=== PATIENT | male | born 1950 | race Caucasian/White ===

== ENCOUNTER → 2017-11-06 07:32 | Outpatient (CLI) | payer MEDICARE, OTHER, SELFPAY | PROVIDERS: PCP Family Medicine; Visit Provider Physician Assistant | DX: Z12.5 Encounter for screening for malignant neoplasm of prostate (principal) | CPT/HCPCS: 36415; 84153 ==

== ENCOUNTER → 2018-10-14 09:18 | Outpatient (CLI) | payer MEDICARE, OTHER, SELFPAY ==
[2018-10-14 11:26] LABS: Prostate Specific Antigen 3.04 ng/mL (0.10-4.00)
== END ==
PROVIDERS: PCP Family Medicine; Visit Provider Specialist
DX: N40.1 Benign prostatic hyperplasia with lower urinary tract symptoms (principal)
CPT/HCPCS: 36415; 84153

== ENCOUNTER 2018-10-25 12:05 | Emergency (ER) | payer MEDICARE, OTHER, SELFPAY ==
[2018-10-25 12:12] VITALS: BP 144/83; PULSE 68; RESP 18; TEMP 36.6; O2SAT 99; BMI 21.9
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
--- NOTE | 2018-10-25 12:49 | PC.NURSE ---
right shoulder injury, elevation of AC joint, good pulses. limited ROM
[2018-10-25 13:28] VITALS: BP 129/86; PULSE 67; RESP 16; O2SAT 97
== END 2018-10-25 13:44 | disposition home or self-care (01) ==
PROVIDERS: Emergency Provider Nurse Practitioner; PCP Family Medicine
DX: S43.101A Unspecified dislocation of right acromioclavicular joint, initial encounter (principal); V18.0XXA Pedal cycle driver injured in noncollision transport accident in nontraffic accident, initial encounter; Y93.55 Activity, bike riding
CPT/HCPCS: 73030; 99283

== ENCOUNTER → 2019-03-19 08:36 | Outpatient (CLI) | payer MEDICARE, OTHER, SELFPAY ==
--- NOTE | 2019-03-19 | DI.US.S_ITS ---
PROCEDURE: US ABD AORTA ANEURYSM SCREEN INDICATIONS: ABDOMINAL AORTIC ANEURYSM SCREENING, FORMER SMOKER TECHNIQUE: Real time scanning was performed of the aorta and iliac arteries, with image documentation. COMPARISON: None. FINDINGS: Aorta: Proximal aortic diameter measures 2.2 cm. Mid-aorta measures 2.0 cm. Distal aortic diameter is 1.8 cm. Iliac arteries: Right common iliac artery measures 2.0 cm. Left common iliac artery measures 1.8 cm. IMPRESSION: 1. No sonographic evidence for abdominal aortic aneurysms or ectasia. 2. Minimal ectasia of the bilateral common iliac arteries. No common iliac aneurysms. Dictated by: Enrike Hidalgo M.D. on 03/19/2019 at 13:29 Approved by: Enrike Hidalgo M.D. on 03/19/2019 at 13:32
== END ==
PROVIDERS: PCP Family Medicine; Visit Provider Family Medicine
DX: Z13.6 Encounter for screening for cardiovascular disorders (principal); Z87.891 Personal history of nicotine dependence
CPT/HCPCS: 76706

== ENCOUNTER → 2019-05-05 07:19 | Outpatient (CLI) | payer MEDICARE, OTHER, SELFPAY ==
[2019-05-05 09:13] LABS: Prostate Specific Antigen 3.77 ng/mL (0.10-4.00)
== END ==
PROVIDERS: PCP Family Medicine; Visit Provider Specialist
DX: N40.1 Benign prostatic hyperplasia with lower urinary tract symptoms (principal)
CPT/HCPCS: 36415; 84153

== ENCOUNTER → 2019-07-31 11:03 | Outpatient (CLI) | payer MEDICARE, OTHER, SELFPAY ==
--- NOTE | 2019-07-31 11:07 | DI.CT.S_ITS ---
PROCEDURE: CT SOFT TISSUE NECK W CON INDICATIONS: Localized swelling, mass and lump, neck TECHNIQUE: After the administration of intravenous contrast, 3.0 mm axial sections acquired from the sella to the aortic arch. Additional oblique axial 3.0 mm sections acquired through the pharynx. 3 mm thick coronal and sagittal reformats were generated. For radiation dose reduction, the following was used: automated exposure control. COMPARISON: None. FINDINGS: Image quality: Excellent. Lymph nodes: No enlarged lymph nodes seen throughout the neck. Vessels: Visualized vasculature appears patent. There is note of a prominent aberrant right subclavian artery. It is causing compression and anterior left displacement of the thoracic esophagus. This is consistent with a congenital variation. Neck spaces: The oropharynx, nasopharynx, and pharynx demonstrate no mucosal lesions. The vocal cords, false vocal cords, pyriform sinuses, epiglottis, vallecula, and tongue base all appear normal. Extramucosal spaces appear unremarkable. Glands: The parotid and submandibular glands appear normal. Thyroid gland is unremarkable. Miscellaneous: Visualized brain and orbits appear normal. Lung apices appear clear. Superficial soft tissues appear normal. Bones: No suspicious bony lesions. Visualized sinuses and mastoids appear unremarkable. IMPRESSION: 1. Prominent aberrant right subclavian artery with a coarse posterior to the thoracic esophagus causing anterior left lateral displacement of the esophagus. Dictated by: Clemencia Cortes M.D. on 07/31/2019 at 17:40 Approved by: Clemencia Cortes M.D. on 07/31/2019 at 17:42
== END ==
PROVIDERS: PCP Family Medicine; Referring Provider Family Medicine; Visit Provider Family Medicine
DX: R22.1 Localized swelling, mass and lump, neck (principal); K22.8 Other specified diseases of esophagus
CPT/HCPCS: 70491; Q9967

== ENCOUNTER → 2019-11-07 10:41 | Outpatient (CLI) | payer MEDICARE, OTHER, SELFPAY ==
--- NOTE | 2019-11-07 | DI.US.S_ITS ---
PROCEDURE: US ABDOMEN LIMITED INDICATIONS: RIGHT INGUINAL PAIN TECHNIQUE: Real-time focused scanning was performed of the inguinal region, with image documentation. COMPARISON: [facility], CT, ABDOMEN/PELVIS WITH CONTRAST, 10/25/2016, 10:21. FINDINGS: No inguinal hernia or other right groin abnormality seen. IMPRESSION: No right groin abnormality. Dictated by: Dayday STEPHENSON Interpreted: Pili Lainez MD on 11/07/2019 at 12:11 Approved by: Pili Lainez MD, PhD on 11/07/2019 at 14:31
--- NOTE | 2019-11-07 | DI.US.S_ITS ---
PROCEDURE: US SCROTUM INDICATIONS: RIGHT INGUINAL PAIN TECHNIQUE: Real-time scanning was performed of the scrotum and testicles, with image documentation. Color and pulse Doppler interrogation was performed of both testicles. COMPARISON: None. FINDINGS: Right: Testicle is normal in size at 4.4 x 1.7 x 3.1 cm, and homogenous in echotexture. Epididymis is normal in overall size and morphology. Mild increased vascularity of the right epididymis Sub-5 mm epididymal cyst Trace hydrocele. No varicoceles. Overlying scrotal skin is normal in thickness. Left: Testicle is normal in size at 4.6 x 2.0 x 3.3 cm, and homogeneous in echotexture. Epididymis is normal in overall size and morphology. Trace hydrocele. No varicoceles. Overlying scrotal skin is normal in thickness. Doppler: Color and pulse Doppler demonstrate normal and symmetric arterial flow in both testicles. IMPRESSION: 1. Normal testicles bilaterally. 2. Mild increased vascularity of the right epididymis which could be associated with mild early epididymitis. Recommend clinical correlation. 3. Sub-5 mm right epididymal cyst. Dictated by: Dayday [place] [facility] Interpreted: Pili Lainez MD on 11/07/2019 at 12:42 Approved by: Pili Lainez MD, PhD on 11/07/2019 at 14:31
== END ==
PROVIDERS: PCP Family Medicine; Referring Provider Specialist; Visit Provider Specialist
DX: R10.31 Right lower quadrant pain (principal); N50.3 Cyst of epididymis
CPT/HCPCS: 76705; 76870

== ENCOUNTER → 2020-11-22 14:58 | Outpatient (CLI) | payer MEDICARE, OTHER, SELFPAY ==
[2020-11-22 17:34] LABS: Prostate Specific Antigen 4.49 ng/mL (0.10-4.00)
== END ==
PROVIDERS: PCP Family Medicine; Referring Provider Specialist; Visit Provider Specialist
DX: N13.8 Other obstructive and reflux uropathy (principal); N40.1 Benign prostatic hyperplasia with lower urinary tract symptoms
CPT/HCPCS: 36415; 84153

== ENCOUNTER → 2021-04-19 09:41 | Outpatient (CLI) | payer MEDICARE, OTHER, SELFPAY ==
[2021-04-19 13:50] LABS: Prostate Specific Antigen 5.36 ng/mL (0.10-4.00)
== END ==
PROVIDERS: PCP Family Medicine; Referring Provider Specialist; Visit Provider Specialist
DX: R97.20 Elevated prostate specific antigen [PSA] (principal); N13.8 Other obstructive and reflux uropathy; N40.1 Benign prostatic hyperplasia with lower urinary tract symptoms
CPT/HCPCS: 36415; 84153

== ENCOUNTER → 2021-06-16 13:03 | Outpatient (CLI) | payer MEDICARE, OTHER, SELFPAY ==
--- NOTE | 2021-06-16 13:04 | DI.MRI.S_ITS ---
PROCEDURE: MR PELIS WO/W CON INDICATIONS: Prostate abnormality TECHNIQUE: Coronal HASTE, axial T1 FSE with fat saturation, 3-plane nonbreath-hold T2 FSE. After the administration of contrast, dynamic axial, delayed axial and coronal VIBE or 2-D FLASH with fat saturation through the pelvis. Optional diffusion weighted imaging and ADC may be performed. COMPARISON: [facility], CT, ABDOMEN/PELVIS WITH CONTRAST, 10/25/2016, 10:21. FINDINGS: Image quality: Diffusion weighted imaging may not be diagnostic due to the large amount of gas in the rectum causing increased diffusion signal in the prostate gland. The dynamic contrast enhanced images are diagnostic. Prostate: Gland size is 4.9 x 3.3 by 3.4 cm; ellipsoid gland volume is 28.6 mL. Lesion size(s): Lesion 1: 0.8 x 0.7 x 1.1 cm Lesion location(s) (sector): Lesion 1: Left posterolateral peripheral zone at the apex Lesion description: Lesion 1: Vaguely wedge-shaped lesion with indistinct margins abutting the capsule. T2 weighted imaging (T2WI) morphology score: Lesion 1: Two Diffusion weighted imaging (DWI) morphology score: Lesion 1: Four Dynamic contrast enhancement (DCE): Lesion 1: Absent Lesion PI-RADS score: Lesion 1: PI-RADS four Genitourinary system: Bladder wall thickness is normal. Distal ureters are non distended. Bowel and peritoneum: No pathologic free pelvic fluid. Inferior colon and small bowel loops are normal in caliber. Sigmoid diverticulosis present. Nodes and vessels: No pelvic or inguinal adenopathy by size criteria. Iliac vessels are normal in caliber. Soft tissues: No inguinal hernias. Bones: Marrow demonstrates normal overall signal, without lesions to suggest metastases. IMPRESSION: 1. Possible 1.1 cm PI-RADS four lesion in the left peripheral zone apex, though diffusion-weighted imaging may not be diagnostic due to rectal gas artifact. There are no other prostate lesions in the normal size gland. Dictated by: Lady Brennan M.D. on 06/16/2021 at 16:53 Approved by: Lady Brennan M.D. on 06/16/2021 at 17:27
[2021-06-16 15:38] LABS: Prostate Specific Antigen 6.33 ng/mL (0.10-4.00)
== END ==
PROVIDERS: PCP Family Medicine; Referring Provider Specialist; Visit Provider Specialist
DX: R97.20 Elevated prostate specific antigen [PSA] (principal); D40.0 Neoplasm of uncertain behavior of prostate
CPT/HCPCS: 36415; 72197; 84153; A9579

== ENCOUNTER → 2023-06-15 11:17 | Outpatient (CLI) | payer MEDICARE, OTHER, SELFPAY ==
--- NOTE | 2023-06-15 | DI.US.S_ITS ---
PROCEDURE: US ABDOMEN LIMITED INDICATIONS: PERINEAL MASS TECHNIQUE: Real-time focused scanning was performed of the abdomen, with image documentation. COMPARISON: [facility], , US ABDOMEN LIMITED, 11/07/2019, 10:53. FINDINGS: Scanning is performed at the area of clinical concern involving the right peroneal lump, inferior to the scrotum. At this site, there is a hypoechoic well-defined focus with adjacent feeder vessels measuring 8 x 6 x 4 mm. There is a tract marked connecting this to the skin. IMPRESSION: Focal skin lesion seen at the site of clinical concern. Differential diagnosis includes phlegmon and sebaceous cyst. Small abscess is possible yet, yet considered to be less likely. Dictated by: Toney Chamorro M.D. on 06/15/2023 at 13:08 Approved by: Toney Chamorro M.D. on 06/15/2023 at 13:10
== END ==
LOC: US 11:18
PROVIDERS: PCP Family Medicine; Referring Provider Family Medicine; Visit Provider Family Medicine
DX: N50.89 Other specified disorders of the male genital organs (principal)
CPT/HCPCS: 76705

== ENCOUNTER 2023-07-17 06:42 | Day surgery (SDC) | payer MEDICARE, OTHER, SELFPAY ==
[2023-07-11 15:22] VITALS: BMI 23.4
[2023-07-17] VITALS (7 sets, daily range): BP systolic 100–160; BP diastolic 72–93; PULSE 61–71; RESP 12–17; TEMP 36.3–36.5; O2SAT 95–98; BMI 22.6
--- NOTE | 2023-07-17 | PATH_ITS ---
[facility] Accession Number: [id number] No. of containers..01 Tissue . 01 Material submitted: . PERINEAL - PERINEAL SEBACEOUS CYST . 01 Diagnosis: PERINEAL, EXCISION: Fibroconnective tissue with mixed acute and chronic inflammation, multinucleated foreign body giant cell reaction, fibrosis, and focal squamous epithelium; see comment. MRV 07/23/2023 1524 Local . 01 Comment: An additional step section is examined. The findings are not entirely specific; however, they engender a differential diagnosis to include secondary reactive changes in the vicinity of a previously ruptured keratinous cyst or ruptured folliculitis. A PAS fungal stain is negative for fungal hyphae. Clinical correlation is suggested. . 01 Electronically signed: . Fritz Stewart MD, Dermatopathologist NPI- [id number] . 01 Gross description: . The specimen is received in formalin labeled with the patient's name, , and perineal cyst, consists of a single strip of walker-brown possible skin measuring 0.6 x 0.2 cm. The underlying subcutaneous yellow-white roughened soft tissue measures 0.9 x 0.7 x 0.7 cm. The external surface is inked blue. The tissue is sectioned into four slices to reveal a cystic structure filled with walker-orange softened material. The tissue is entirely submitted in cassette A1. ([id number]) /MRV 07/18/2023 1239 Local . 01 Pathologist provided ICD-10: R23.9 . 01 CPT . 721463, 024932 Specimen Comment: A courtesy copy of this report has been sent to [phone] Performed at: 01 [facility] [address] [place] [address], [place], [place] [id number] MD Diego Erickson MD Phone: [phone]
[2023-07-17] MEDS: LACTATED RINGERS 1,000 ML 42 ML IV (07:25)
--- NOTE | 2023-07-17 07:48 | PM.PREOP ---
Pre-operative Note COVID-19 COVID-19 status: Not tested Interval Note History & Physical reviewed/Exam performed by Physician: Yes Changes to H&P: No ASA Class (for procedural sedation): II
--- NOTE | 2023-07-17 08:10 | SUR.OPER ---
Lithotomy on padded OR bed, head on pillow, arms secured on padded arm boards at <90 degrees abduction. Legs secured in padded yellow fins stirrups.
[2023-07-17] MEDS: BUPIVACAINE 0.5% (PF) 30 ML, EPINEPHrine 0.15 MG INJ (08:14)
--- NOTE | 2023-07-17 08:45 | PM.OP.1 ---
Operative Date/Time/Diagnoses Date of procedure: 07/17/23 Time of procedure: 08:45 Pre-op diagnosis: Perineal cyst Post-op diagnosis: same Procedure & Clinicians Procedure: Excisional biopsy of perineal subcutaneous cyst Same procedure as scheduled: Yes Surgeon: Moi Brice Anesthesia Type: MAC +/- Operative Notes Procedure in detail: The patient was brought to the operating room and monitored anesthesia was induced. No antibiotics were required. The perineum was prepped and draped in the usual fashion. A time out was performed. The pea sized cyst was palpable just deep to the skin and slightly to the right of the median raphe. After injection about 5 mL of marcaine a 3 cm incision was created parallel to the raphe. The cyst was about 8 mm and just deep to the dermis. It appeared fibrous. It was excised and passed off. Additional local was injected and the skin incision was closed in layers using multiple 3-0 vicryl dermal sutures and a running 4-0 monocrile subcuticular closure. Dermabond was applied over the skin incision. EBL: 3 mL Specimen: perineal cyst Post-operative Condition: stable Disposition: PACU
--- NOTE | 2023-07-17 09:00 | SUR.PHASEII ---
[place] right eye. Patient reported hitting it with binoculars.
== END 2023-07-17 09:41 | disposition home or self-care (01) ==
PROVIDERS: PCP Family Medicine; Referring Provider Surgery; Visit Provider Surgery
PROC: (CPT 11106; principal; 2023-07-17 07:45)
DX: N50.89 Other specified disorders of the male genital organs (principal)
CPT/HCPCS: 11106; J0171; J2704; J3010